=== PATIENT | female | born 1945 | race Hispanic/Latino ===

== ENCOUNTER → 2019-04-10 | Outpatient (CLI) | payer OTHER | END | disposition home or self-care (01) | LOC: RAH 09:58 | PROVIDERS: ATTEND Internal Medicine | DX: Z12.31 Encounter for screening mammogram for malignant neoplasm of breast (principal) | CPT/HCPCS: 77067 ==

== ENCOUNTER → 2020-04-13 | Outpatient (CLI) | payer OTHER | END | disposition home or self-care (01) | LOC: RAH 10:07 | PROVIDERS: ATTEND Internal Medicine | DX: Z12.31 Encounter for screening mammogram for malignant neoplasm of breast (principal) | CPT/HCPCS: 77067 ==

== ENCOUNTER → 2021-06-23 | Outpatient (CLI) | payer OTHER | END | disposition home or self-care (01) | LOC: RAH 11:09 | PROVIDERS: ATTEND Internal Medicine | DX: Z12.31 Encounter for screening mammogram for malignant neoplasm of breast (principal) | CPT/HCPCS: 77067 ==

== ENCOUNTER → 2023-05-31 | Outpatient (CLI) | payer OTHER | END | disposition home or self-care (01) | LOC: RAH 07:50 | PROVIDERS: ATTEND Internal Medicine | DX: I70.0 Atherosclerosis of aorta (principal); R63.4 Abnormal weight loss; M47.815 Spondylosis without myelopathy or radiculopathy, thoracolumbar region | CPT/HCPCS: 71046; 76700 ==

== ENCOUNTER → 2023-07-24 | Outpatient (CLI) | payer OTHER | END | disposition home or self-care (01) | LOC: RAH 08:55 | PROVIDERS: ATTEND Internal Medicine | DX: Z12.31 Encounter for screening mammogram for malignant neoplasm of breast (principal) | CPT/HCPCS: 77067 ==

== ENCOUNTER → 2023-08-28 | Outpatient (CLI) | payer OTHER ==
[~2023-08-28] MED LIST: IOHEXOL 350 MG/ML 100ML INFUS..BTL IV ONE
== END | disposition home or self-care (01) ==
LOC: RAH 09:48
PROVIDERS: ATTEND Internal Medicine
DX: R63.4 Abnormal weight loss (principal); Z90.49 Acquired absence of other specified parts of digestive tract
CPT/HCPCS: 71260; 74177; Q9967

== ENCOUNTER 2023-09-29 11:49 | Emergency (ER) | payer OTHER ==
[~2023-09-29] VITALS: Ht 157.5 cm; Wt 60.8 kg
[2023-09-29 12:55] VITALS: BP 153/78; PULSE 97; RESP 18
[2023-09-29] MEDS ORDERED: ACET-2893 PO (15:21)
== END 2023-09-29 15:27 | disposition home or self-care (01) ==
LOC: EDH 11:49
DX: S16.1XXA Strain of muscle, fascia and tendon at neck level, initial encounter (principal); S39.012A Strain of muscle, fascia and tendon of lower back, initial encounter; I10 Essential (primary) hypertension; E11.9 Type 2 diabetes mellitus without complications; E78.00 Pure hypercholesterolemia, unspecified; Z90.710 Acquired absence of both cervix and uterus; V89.2XXA Person injured in unspecified motor-vehicle accident, traffic, initial encounter; Y93.I9 Activity, other involving external motion; Y92.488 Other paved roadways as the place of occurrence of the external cause; Y99.8 Other external cause status
CPT/HCPCS: 72125; 72131

== ENCOUNTER → 2024-09-13 | Outpatient (CLI) | payer OTHER ==
[~2024-09-13] MED LIST changes: +ACET-2893 PO; -IOHEXOL 350 MG/ML 100ML INFUS..BTL IV ONE
--- NOTE | 2024-09-13 10:29 | HMCIMG ---
Exam Type: MAMMO SCREENING BILATERAL Clinical Information: ROUTINE SCREENING Comparison: July 24, 2023 Technique: Bilateral mammogram with CAD was performed with CC and MLO projections. FINDINGS: Breast parenchyma is heterogeneously dense which lowers the sensitivity of the mammographic examination. No dominant mass or suspicious microcalcification identified. There is no nipple retraction or skin thickening. Benign-appearing calcifications are seen. CAD shows no worrisome regions. IMPRESSION: 1. No mammographic signs of malignancy. 2. Routine follow-up recommended. CATEGORY 2: BENIGN FINDINGS Note: A negative x-ray should not delay biopsy if a dominant or clinically suspicious mass is present, since 8-10% of cancers are not identified by mammography. Dense breasts may obscure an underlying neoplasm.
== END | disposition home or self-care (01) ==
LOC: RAH 09:27
PROVIDERS: ATTEND Internal Medicine
DX: Z12.31 Encounter for screening mammogram for malignant neoplasm of breast (principal)
CPT/HCPCS: 77067